=== PATIENT | male | born 1985 | race African-American/Black ===

== ENCOUNTER 2017-02-23 20:29 | Emergency (ER) | payer SELFPAY ==
[~2017-02-23] VITALS: Ht 188 cm; Wt 106.6 kg
[2017-02-23 20:34] VITALS: BP 141/86
[2017-02-23] MEDS ORDERED: NKM (20:37)
[2017-02-23] MEDS ORDERED: Lidocaine 1% 10mg/ml/Epi 0.005mg/ml 30ml vial INJ ONE (20:45)
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
[2017-02-23 21:58] LABS: BASOPHILS % (AUTO) 1.7 % (0.0-2.0); EOSINOPHILS % (AUTO) 4.7 % (0.0-3.0); LYMPHOCYTES % (AUTO) 34.5 % (20.0-45.0); MEAN CORPUSCULAR HEMOGLOBIN 30.6 PG (27.0-31.0); MEAN CORPUSCULAR HGB CONC 32.1 G/DL (32.0-36.0); MEAN CORPUSCULAR VOLUME 95 FL (80-99); MONOCYTES % (AUTO) 6.7 % (1.0-10.0); NEUTROPHILS % (AUTO) 52.5 % (45.0-75.0); PLATELET COUNT 283 K/UL (150-450); RED BLOOD COUNT 5.17 M/UL (4.70-6.10); RED CELL DISTRIBUTION WIDTH 11.7 % (11.6-14.8); WHITE BLOOD COUNT 10.1 K/UL (4.8-10.8)
[2017-02-23] MEDS ORDERED: ceFAZolin sod 1 GM in D5W 55 ML IVPB SCH (22:00)
[2017-02-23 22:05] LABS: PROTHROMBIN TIME 10.4 SEC (9.30-11.50)
[2017-02-23 22:11] LABS: ALANINE AMINOTRANSFERASE 13 U/L (3-41); ALBUMIN/GLOBULIN RATIO 1.3 (1.0-2.7); ANION GAP 13 (5-15); ASPARTATE AMINO TRANSFERASE 19 U/L (5-40); CALCIUM 9.6 mg/dL (8.6-10.2); CARBON DIOXIDE 25 mEQ/L (20-30); CHLORIDE 101 mEQ/L (98-107); CREATININE 1.2 mg/dL (0.7-1.2); GLOMERULAR FILTRATION RATE > 60 mL/min (>60); HEMOLYSIS 13; POTASSIUM 3.6 mEQ/L (3.4-4.9); SODIUM 139 mEQ/L (135-145); TOTAL PROTEIN 7.7 g/dL (6.6-8.7)
[2017-02-23 22:12] LABS: APPEARANCE,URINE CLEAR; KETONES,URINE NEGATIVE (NEGATIVE); LEUKOCYTE ESTERASE ,URINE 1+ (NEGATIVE); NITRITE,URINE NEGATIVE (NEGATIVE); PH,URINE 5 (4.5-8.0); PROTEIN,URINE 2+ (NEGATIVE); UROBILINOGEN,URINE 1 MG/DL (0.0-1.0)
[2017-02-23 22:18] LABS: BACTERIA,URINE FEW /HPF; RBC,URINE 0-2 /HPF (0 - 0)
[2017-02-23 22:34] VITALS: BP 148/81
[2017-02-24 00:34] VITALS: BP 150/75
[2017-02-24] MEDS ORDERED: KEFLEX500 MG ORAL (01:05)
[2017-02-24] MEDS ORDERED: TRAMADOL HCL50 MG ORAL (01:05)
[2017-02-24] MEDS ORDERED: IBUPROFEN600 MG ORAL (01:05)
[2017-02-24 01:20] VITALS: BP 145/78
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
== END 2017-02-24 01:20 | disposition home or self-care (01) ==
LOC: EMR 21:15
DX: S31.119A Laceration without foreign body of abdominal wall, unspecified quadrant without penetration into peritoneal cavity, initial encounter (principal); Y04.8XXA Assault by other bodily force, initial encounter; Y92.512 Supermarket, store or market as the place of occurrence of the external cause; J45.909 Unspecified asthma, uncomplicated; Y99.0 Civilian activity done for income or pay
CPT/HCPCS: 12002; 36415; 71260; 74177; 80053; 80300; 81003; 85025; 85610; 85730; 86850; 86900; 86901; 96374; 96375; 99284; J0690; Q9967

== ENCOUNTER 2017-03-21 12:41 | Emergency (ER) | payer SELFPAY ==
[~2017-03-21] VITALS: Ht 188 cm; Wt 104.3 kg
[~2017-03-21 12:41] MED LIST: IBUPROFEN600 MG ORAL; KEFLEX500 MG ORAL; NKM; TRAMADOL HCL50 MG ORAL
[2017-03-21 13:11] VITALS: BP 111/69
[2017-03-21 14:39] VITALS: BP 127/74
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
== END 2017-03-21 14:39 | disposition home or self-care (01) ==
LOC: EMR 13:57
DX: Z48.02 Encounter for removal of sutures (principal); J45.909 Unspecified asthma, uncomplicated
CPT/HCPCS: 99281